=== PATIENT | male | born 1955 | race Caucasian/White ===

== ENCOUNTER → 2018-10-24 | Outpatient (CLI) | payer OTHER ==
[~2018-10-24] MED LIST: /PANT40TA PO; CARA1TAB2 PO; IBUP80TA PO; NORCOBULK OR; ZOLP-187 PO
--- NOTE | 2018-10-24 13:14 | REP ---
Chest x-ray: Two views. History: Chronic cough. Comparison study: March 02, 2015. Findings: The patient is status post ventral cervical discectomy and fusion plating. The lungs are symmetrically aerated and clear. Pleural angles are sharp. Heart size is normal. The thoracic aorta is somewhat tortuous as before. There are degenerative disc changes in the thoracic spine. Impression: No active disease. Electronically Signed by Mike Irene MD 10/24/2018 01:22 P
== END ==
LOC: M RAD 11:57
PROVIDERS: ATTEND Physician Assistant
DX: R05 Cough (principal)

== ENCOUNTER → 2018-11-06 | Outpatient (REF) ==
--- NOTE | 2018-11-07 01:59 | REP ---
Clinical: Chronic thoracic back pain. Technique: AP, lateral views of the thoracic spine. Findings: Kyphosis is maintained and no acute fracture / compression injury or subluxation is appreciated. Mild/moderate age-related degenerative changes include endplate sclerosis with bridging osteophytes. Minimal multilevel disc space narrowing cannot be excluded. Impression: Mild/moderate age-related degenerative changes suggested. Electronically Signed by Abdifatah Reyna MD 11/07/2018 01:50 A
--- NOTE | 2018-11-07 02:00 | REP ---
Clinical: Chronic back pain. Technique: AP, lateral views of the lumbosacral spine. Findings: Lordosis maintained. No acute fracture / compression injury or subluxation. Mild degenerative changes include marginal spurring, endplate sclerosis and hypertrophic facet changes. Disc spaces appear relatively well maintained for age. Impression: Mild multilevel spondylosis. Electronically Signed by Abdifatah Reyna MD 11/07/2018 01:51 A
--- NOTE | 2018-11-07 02:30 | REP ---
Clinical: Chronic neck pain. Technique: AP, lateral, swimmers and open-mouth views of the cervical spine. Comparison: None. Findings: The patient is noted to be status post anterior fusion at C5-C7. Anterior osteophytosis at C2-C5 along with endplate sclerosis and minimal disc space narrowing noted. Alignment is maintained. No acute fracture / compression injury or subluxation identified. Posterior elements and spinous processes appear intact. Open mouth view demonstrates normal C1-C2 articulation and odontoid process. Impression: Status post anterior fusion. Moderate spondylosis. Electronically Signed by Abdifatah Reyna MD 11/07/2018 02:21 A
== END ==
LOC: M RAD 11:34
PROVIDERS: ATTEND Physician Assistant
DX: M47.892 Other spondylosis, cervical region (principal); M47.896 Other spondylosis, lumbar region; M51.34 Other intervertebral disc degeneration, thoracic region; M54.9 Dorsalgia, unspecified; G89.29 Other chronic pain; Z98.1 Arthrodesis status

== ENCOUNTER → 2020-04-30 | Outpatient (CLI) | payer OTHER ==
[~2020-04-30] MED LIST changes: -/PANT40TA PO; +PROT1TAB2 PO
--- NOTE | 2020-05-06 08:08 | ECHO ---
DATE OF PROCEDURE: 04/30/2020 REFERRING PHYSICIAN: Nate DONNELLY. INDICATION: Syncope. HEIGHT 170 cm WEIGHT: 100 kg. DIMENSIONS: IVS - 1.1 LV - 4.6 LVPW - 1.1 LA - 3.7 Aorta - 3.5 RV - 4.0 Mitral E wave velocity - 80, A-wave - 56 E prime septal - 6.5 E prime lateral - 8.5 FINDINGS: The study is of acceptable technical quality. The patient is in sinus rhythm. Normal LV size with preserved LV systolic function. Estimated LVEF 60-65%. Right ventricle appears mildly dilated but normally contractile. Both atria appear grossly normal. Aortic valve is mildly sclerotic but has three cusps and preserved mobility. Mitral valve appears normal. Tricuspid valve also appears normal. Limited views of pulmonic valves also appear normal. No pericardial effusion is noted. Inferior vena cava was poorly seen and I cannot comment on its size. Aortic root is normal. Aortic arch and abdominal aorta were not well seen. Doppler interrogation of aortic valve reveals no stenosis or insufficiency. There is trace mitral and trace tricuspid insufficiency. Calculated pulmonary artery pressure is in low 30s corresponding to mild pulmonary hypertension. Mitral inflow pattern and tissue Doppler imaging of mitral annulus reveal most likely normal diastolic function even though tissue Doppler velocities of mitral annulus are mildly reduced. CONCLUSION: 1. Study is of acceptable technical quality, the patient is in sinus rhythm. 2. Normal LV size and systolic function, normal diastolic function. 3. No significant valvular disease. 4. Unable to estimate central venous pressure but likely mild pulmonary hypertension. COMMENT Subacute bacterial endocarditis (SBE) prophylaxis is not recommended. No findings to explain syncopal event.
== END ==
LOC: M CARPUL 10:24
PROVIDERS: ATTEND Physician Assistant Medical
DX: R55 Syncope and collapse (principal)

== ENCOUNTER 2020-10-19 17:37 | Emergency (ER) | payer OTHER ==
[~2020-10-19] VITALS: Ht 172.7 cm; Wt 109.9 kg
[2020-10-19] MEDS ORDERED: XARE10TA PO (17:50)
[2020-10-19] MEDS ORDERED: ELIQ5TAB PO (17:50)
[2020-10-19] MEDS ORDERED: FLOM0.4C39 PO (17:50)
[2020-10-19] MEDS ORDERED: PREG50CA PO (17:50)
[2020-10-19] MEDS ORDERED: PERC5TAB12 PO (17:50)
[2020-10-19 18:51] LABS: BASO % 0.5 % (0.0-1.0); EOS # 0.1 10^3/uL (0.0-0.5); EOS % 1.8 % (0.0-3.0); HEMATOCRIT 39.1 % (42.0-52.0); HEMOGLOBIN 13.4 g/dl (13.5-17.5); LYMPH # 1.5 10^3/uL (1.5-5.0); LYMPH % 25.9 % (24.0-44.0); MEAN CORPUSCULAR HEMOGLOBIN 31.6 pg (27.0-33.0); MEAN CORPUSCULAR HGB CONC 34.3 g/dl (32.0-36.5); MEAN CORPUSCULAR VOLUME 92.2 fl (80.0-96.0); MONO # 0.7 10^3/uL (0.0-0.8); MONO % 12.3 % (0.0-5.0); NEUTROPHILS # 3.3 10^3/uL (1.5-8.5); NEUTROPHILS % 59.3 % (36.0-66.0); PLATELET COUNT, AUTOMATED 156 10^3/uL (150-450); RED BLOOD COUNT 4.24 10^6/uL (4.30-6.10); WHITE BLOOD COUNT 5.6 10^3/uL (4.0-10.0)
[2020-10-19 19:12] LABS: ALBUMIN 4.2 GM/DL (3.2-5.2); ALT/SGPT 36 U/L (12-78); BILIRUBIN,DIRECT 0.3 MG/DL (0.0-0.2); BILIRUBIN,TOTAL 1.3 MG/DL (0.2-1.0); BLOOD UREA NITROGEN 14 MG/DL (7-18); CALCIUM LEVEL 9.1 MG/DL (8.8-10.2); CARBON DIOXIDE LEVEL 26 MEQ/L (21-32); CHLORIDE LEVEL 105 MEQ/L (98-107); CREATININE FOR GFR 1.13 MG/DL (0.70-1.30); GLOMERULAR FILTRATION RATE > 60.0 (>49); GLUCOSE, FASTING 94 MG/DL (70-100); LIPASE 103 U/L (73-393); SODIUM LEVEL 137 MEQ/L (136-145); TOTAL PROTEIN 7.6 GM/DL (6.4-8.2)
--- NOTE | 2020-10-19 20:36 | REPVR ---
PROCEDURE INFORMATION: Exam: US Pelvis Limited, Male Exam date and time: 10/19/2020 7:47 PM Age: 65 years old Clinical indication: Pain; Other: Groin; Additional info: Right pelvic pain; R/O hernia TECHNIQUE: Imaging protocol: Real-time pelvic ultrasound with image documentation. COMPARISON: No relevant prior studies available. FINDINGS: Soft tissues: Small fat containing inguinal hernia on the right. Hernia protrudes through a defect measured 5 mm at rest and 7 mm during Valsalva maneuver. No bowel demonstrated within the hernia. Hernia appears to be reducible. No evidence of an inguinal hernia on the left. IMPRESSION: Small fat containing inguinal hernia on the right. Electronically signed by: Nicholas Herndon On 10/19/2020 20:36:17 PM
[2020-10-19 20:59] VITALS: BP 161/71
== END 2020-10-19 21:00 | disposition home or self-care (01) ==
LOC: M ED 17:37
DX: K40.90 Unilateral inguinal hernia, without obstruction or gangrene, not specified as recurrent (principal); I48.91 Unspecified atrial fibrillation; M54.5 Low back pain; Z79.01 Long term (current) use of anticoagulants; Z79.899 Other long term (current) drug therapy; Z91.041 Radiographic dye allergy status; Z88.6 Allergy status to analgesic agent